=== PATIENT | female | born 1945 | race Caucasian/White ===

== ENCOUNTER 2016-10-11 15:54 | Emergency (ER) | payer MEDICARE, OTHER ==
[2016-10-11] MEDS ORDERED: 0.9 % SODIUM CHLORIDE 1,000 ML BAG IV ONE (16:31)
[2016-10-11] MEDS ORDERED: PROMETHAZINE HCL 25 MG/ML VIAL IVP ONE (16:33)
[2016-10-11] MEDS ORDERED: HYDROMORPHONE HCL 1 MG/ML CPJ IVP ONE (16:33)
[2016-10-11 16:49] LABS: BASO % 0.6 % (0-6); EOS % 5.3 % (0-6); GRAN % 60.9 % (47-80); HEMATOCRIT 34.4 % (35.0-47.0); HEMOGLOBIN 10.2 gm/dl (11.6-16.0); LYMPH % 26.8 % (16-45); MEAN CELL VOLUME 82.5 fl (81-97); MEAN CORPUSCULAR HGB CONC 29.7 g/dl (32-36); MEAN PLATELET VOLUME 12.4 fl (7.4-10.4); MONO % 6.4 % (0-9); PLATELET COUNT 218 K/uL (130-400); RED BLOOD COUNT 4.17 M/uL (3.80-5.40); RED CELL DISTRIBUTION WIDTH 14.4 % (11.5-14.5); WHITE BLOOD COUNT W/O DIFF 5.1 K/uL (4.2-12.2)
[2016-10-11 16:51] LABS: MEAN CORPUSCULAR HEMOGLOBIN 24.4 pg (27-33)
[2016-10-11 17:01] LABS: ALB/GLOB RATIO 1.5 (1.1-1.8); ALBUMIN 4.3 gm/dL (3.5-5.0); ALKALINE PHOSPHATASE 49 U/L (38-126); ALT/SGPT 37 U/L (9-52); AMYLASE 80 U/L (30-110); ANION GAP 14.1 (7-16); AST/SGOT 24 U/L (14-36); BILIRUBIN,TOTAL 0.35 mg/dL (0.2-1.3); BLOOD UREA NITROGEN 12 mg/dL (7-17); CARBON DIOXIDE 24.9 mmol/L (22-30); CREATININE 0.9 mg/dL (0.52-1.04); EST GLOMERULAR FILTRATION RATE > 60 ml/min; GLUCOSE,RANDOM 157 mg/dL (70-110); LIPASE 152 U/L (23-300); TOTAL PROTEIN 7.2 gm/dL (6.3-8.2)
--- NOTE | 2016-10-11 17:15 | Emergency Department Record ---
History of Present Illness - General Chief Complaint: Back Pain/Injury Stated Complaint: BACK PAIN (KIDNEY STONES POSS) Time Seen by Provider: 10/11/16 16:10 Source: Patient Mode of Arrival: Ambulatory Limitations: No limitations - History of Present Illness Initial Comments: pt has been having severe back pain for 3 wks.she went to her family dr and he took an xray. he told her that she has kidney stones. the pain has contd to get worse. MD Complaint: Back pain Onset/Timin -: Month(s) Similar Symptoms Previously: No Place: Home Radiation: Abdomen, Flank Severity scale (1-10): 7 Quality: Dull, Other Consistency: Constant Improves With: None Worsens With: None Context: Unknown Associated Symptoms: Denies other symptoms - Related Data Home Medications Medication Instructions Recorded Confirmed Last Taken Omeprazole [Omeprazole] 40 mg PO DAILY 08/19/14 10/11/16 Unknown Budesonide/Formoterol Fumarate 10.2 gm IH DAILY 10/11/16 10/11/16 Unknown [Symbicort 160-4.5 Mcg Inhaler] Ciprofloxacin HCl [Cipro] 500 mg PO DAILY 10/11/16 10/11/16 Unknown Previous Rx's Medication Instructions Recorded Aclidinium [place] [Tudorza 400 mcg IH BID #1 [email or web address] 08/22/14 Pressair] Cyclobenzaprine HCl [Flexeril] 5 mg PO QHS #14 tab 10/11/16 Hydrocodone/Acetaminophen [[place] 0.5 - 1 tab PO TID PRN #10 tab 10/11/16 5mg/325mg] Ibuprofen [Motrin 400Mg] 400 mg PO Q6H PRN #20 tablet 10/11/16 Allergies Allergy/AdvReac Type Severity Reaction Status Date / Time hydrocodone [HYDROCODONE] Allergy Unknown MIGRAINES Verified 08/20/14 08:56 iodine [IODINE] Allergy Unknown HIVES Verified 08/20/14 08:56 Travel Screening - Travel/Exposure Within Last 30 Days Have you traveled within the last 30 days?: No Review of Systems Reviewed: No additional complaints except as noted below Constitutional: Reports: As per HPI. Denies: Chills, Fever, Malaise, Night sweats, Weakness, Weight change Eyes: Reports: As per HPI. Denies: Eye discharge, Eye pain, Photophobia, Vision change ENT: Reports: As per HPI. Denies: Congestion, Dental pain, Ear pain, Epistaxis , Hearing loss, Throat pain Respiratory: Reports: As per HPI. Denies: Cough, Dyspnea, Hemoptysis, Stridor, Wheezes Cardiovascular: Reports: As per HPI. Denies: Arrhythmia, Chest pain, Dyspnea on exertion, Edema, Murmurs, Orthopnea, Palpitations, Paroxysmal nocturnal dyspnea, Rheumatic Fever, Syncope Endocrine: Reports: As per HPI. Denies: Fatigue, Heat or cold intolerance, Polydipsia, Polyuria Gastrointestinal: Reports: As per HPI. Denies: Abdominal pain, Constipation, Diarrhea, Hematemesis, Hematochezia, Melena, Nausea, Vomiting Genitourinary: Reports: As per HPI. Denies: Abnormal menses, Discharge, Dyspareunia, Dysuria, Frequency, Hematuria, Incontinence, Retention, Urgency Musculoskeletal: Reports: As per HPI. Denies: Arthralgia, Back pain, Gout, Joint swelling, Myalgia, Neck pain Skin: Reports: As per HPI. Denies: Bruising, Change in color, Change in hair/ nails, Lesions, Pruritus, Rash Neurological: Reports: As per HPI. Denies: Abnormal gait, Confusion, Headache, Numbness, Paresthesias, Seizure, Tingling, Tremors, Vertigo, Weakness Psychiatric: Reports: As per HPI. Denies: Anxiety, Auditory hallucinations, Depression, Homicidal thoughts, Suicidal thoughts, Visual hallucinations Hematological/Lymphatic: Reports: As per HPI. Denies: Anemia, Blood Clots, Easy bleeding, Easy bruising, Swollen glands Past Medical History - SOCIAL HISTORY Smoking Status: Heavy tobacco smoker (>10/day) - RESPIRATORY Hx Respiratory Disorders: Yes Hx Asthma: Yes Hx COPD: Yes Hx Pneumonia: Yes - CARDIOVASCULAR Hx Cardio Disorders: No - NEURO Hx Neuro Disorders: Yes Hx Headaches: Yes - GI Hx GI Disorders: Yes Hx GI Bleed: Yes - Hx Genitourinary Disorders: No - ENDOCRINE Hx Endocrine Disorders: No - MUSCULOSKELETAL Hx Musculoskeletal Disorders: No - PSYCH Hx Psych Problems: No - HEMATOLOGY/ONCOLOGY Hx Hematology/Oncology Disorders: Yes Hx Cancer: Yes (Colon about 9 years ag0) Hx Chemotherapy: No Hx Radiation Therapy: No Family Medical History Any Significant Family History?: Yes Hx Cancer: Brother/Sister *Diabetes Comment: Aunts/uncles Hx Resp Disorders: Mother *Resp Comment: emphysema Physical Exam - General General Appearance: Alert, Oriented x3, Cooperative, Mild distress - Head Head exam: Normal inspection - Eye Eye exam: Normal appearance, PERRL, EOMI Pupils: Normal accommodation - ENT ENT exam: Normal exam, Mucous membranes moist, Normal external ear exam, Normal orophraynx Ear exam: Normal external inspection. negative: External canal tenderness Nasal Exam: Normal inspection. negative: Discharge, Sinus tenderness Mouth exam: Normal external inspection, Tongue normal Teeth exam: Normal inspection. negative: Dental caries Throat exam: Normal inspection. negative: Tonsillar erythema, Tonsillar exudate - Neck Neck exam: Normal inspection, Full ROM. negative: Tenderness - Respiratory Respiratory exam: Normal lung sounds bilaterally. negative: Respiratory distress - Cardiovascular Cardiovascular Exam: Normal rhythm, Normal heart sounds, Tachycardia - GI/Abdominal GI/Abdominal exam: Soft, Normal bowel sounds, Tenderness - Rectal Rectal exam: Deferred - exam: Deferred - Extremities Extremities exam: Normal inspection, Full ROM, Normal capillary refill. negative: Tenderness - Back Back exam: Reports: CVA tenderness (R), CVA tenderness (L), Full ROM. Denies: Muscle spasm, Rash noted, Tenderness - Neurological Neurological exam: Alert, CN II-XII intact, Normal gait, Oriented X3 - Psychiatric Psychiatric exam: Normal affect, Normal mood - Skin Skin exam: Dry, Intact, Normal color, Warm Course Vital Signs 10/11/16 16:07 Temperature 98.1 F Pulse Rate 113 H Respiratory 22 Rate Blood Pressure 153/81 Pulse Ox 98 Medical Decision Making - Management Options [facility] Management: Additional Work-up Planned (e.g. ADM/Transfer/OP Study) - Data Complexity MDM Data: Labs Ordered and/or Reviewed, X-Ray Ordered and/or Reviewed - Lab Data Result diagrams: 10/11/16 16:30 10/11/16 16:30 Lab Results 10/11/16 10/11/16 Range/Units 16:30 16:30 WBC 5.1 (4.2-12.2) K/uL RBC 4.17 (3.80-5.40) M/uL Hgb 10.2 L (11.6-16.0) gm/dl Hct 34.4 L (35.0-47.0) % MCV 82.5 (81-97) fl MCH 24.4 L (27-33) pg MCHC 29.7 L (32-36) g/dl RDW 14.4 (11.5-14.5) % Plt Count 218 (130-400) K/uL MPV 12.4 H (7.4-10.4) fl Gran % 60.9 (47-80) % Lymphocytes % 26.8 (16-45) % Monocytes % 6.4 (0-9) % Eosinophils % 5.3 (0-6) % Basophils % 0.6 (0-6) % Sodium 143 (136-145) mmol/L Potassium 3.7 (3.5-5.1) mmol/L Chloride 104 (98-107) mmol/L Carbon Dioxide 24.9 (22-30) mmol/L Anion Gap 14.1 (7-16) BUN 12 (7-17) mg/dL Creatinine 0.9 (0.52-1.04) mg/dL Estimated GFR > 60 ml/min Random Glucose 157 H (70-110) mg/dL Calcium 8.6 (8.5-10.1) mg/dL Total Bilirubin 0.35 (0.2-1.3) mg/dL AST 24 (14-36) U/L ALT 37 (9-52) U/L Alkaline Phosphatase 49 (38-126) U/L Total Protein 7.2 (6.3-8.2) gm/dL Albumin 4.3 (3.5-5.0) gm/dL Globulin 2.9 (1.4-4.8) gm/dL Albumin/Globulin Ratio 1.5 (1.1-1.8) Amylase 80 (30-110) U/L Lipase 152 (23-300) U/L Disposition Disposition: Discharge Clinical Impression: Radiculopathy Qualifiers: Spinal region: thoracolumbar Qualified Code(s): M54.15 - Radiculopathy, thoracolumbar region Back pain Qualifiers: Back pain location: back pain in other location Chronicity: acute Qualified Code(s): M54.9 - Dorsalgia, unspecified Disposition: Home, Self-Care Condition: (1) Good Instructions: Lumbar Radiculopathy (ED), Back Pain (ED), Flank Pain (ED) Additional Instructions: follow up with family doctor. return sooner if worse. rest. no lifting more then 5 lbs in 5 days. Prescriptions: Cyclobenzaprine HCl [Flexeril] 5 mg PO QHS #14 tab Ibuprofen [Motrin 400Mg] 400 mg PO Q6H PRN #20 tablet PRN Reason: Pain - Mild (1-4) Hydrocodone/Acetaminophen [[place] 5mg/325mg] 0.5 - 1 tab PO TID PRN #10 tab PRN Reason: Pain - General Forms: Patient Portal Access
[2016-10-11 18:01] LABS: URINE APPEARANCE CLEAR; URINE BILIRUBIN NEGATIVE (NEGATIVE); URINE BLOOD NEGATIVE (NEGATIVE); URINE COLOR YELLOW; URINE GLUCOSE (UA) NEGATIVE (NEGATIVE); URINE KETONE NEGATIVE (NEGATIVE); URINE LEUKOCYTE ESTERASE NEGATIVE (NEGATIVE); URINE NITRITE NEGATIVE (NEGATIVE); URINE PROTEIN NEGATIVE (NEGATIVE); URINE UROBILINOGEN 0.2 E.U./dL (0.20 - 1.00)
== END 2016-10-11 18:52 | disposition home or self-care (01) ==
LOC: ER 15:54
DX: M54.15 Radiculopathy, thoracolumbar region (principal); R10.84 Generalized abdominal pain; Z87.442 Personal history of urinary calculi
CPT/HCPCS: 99284 ×2; 96374; 96375; 82150; 83690; 85025; 80053; 81003; 74176; J1170; J2550; J7030

== ENCOUNTER 2016-12-31 08:52 | Day surgery (SDC) | payer MEDICARE, OTHER ==
[~2016-12-31 08:52] MED LIST: ACETAMINOPHEN 1000MG/100 ML PREMIX IV ONE; FAMOTIDINE 20MG TABLET PO ONE; MECLIZINE 25 MG TABLET PO ONE; METOCLOPRAMIDE 10 MG TABLET PO ONE
[2016-12-31 09:14] LABS: BASO % 0.6 % (0-6); EOS % 6.1 % (0-6); GRAN % 51.6 % (47-80); HEMATOCRIT 42.3 % (35.0-47.0); HEMOGLOBIN 13.3 gm/dl (11.6-16.0); LYMPH % 32.4 % (16-45); MEAN CELL VOLUME 88.5 fl (81-97); MEAN CORPUSCULAR HEMOGLOBIN 27.8 pg (27-33); MEAN CORPUSCULAR HGB CONC 31.4 g/dl (32-36); MEAN PLATELET VOLUME 12.4 fl (7.4-10.4); MONO % 9.3 % (0-9); PLATELET COUNT 227 K/uL (130-400); RED BLOOD COUNT 4.78 M/uL (3.80-5.40); RED CELL DISTRIBUTION WIDTH 16.7 % (11.5-14.5); WHITE BLOOD COUNT W/O DIFF 7.2 K/uL (4.2-12.2)
[2016-12-31] MEDS ORDERED: ROCURONIUM BROMIDE 50MG/5ML VIAL IV ONE (14:00)
[2016-12-31] MEDS ORDERED: PROPOFOL 10 MG/ML VIAL IV ONE (14:00)
[2016-12-31] MEDS ORDERED: MIDAZOLAM HCL 2MG/2ML VIAL IV ONE (14:00)
[2016-12-31] MEDS ORDERED: MORPHINE SULFATE 5 MG/ML PFS IVP ONE (14:00)
[2016-12-31] MEDS ORDERED: ONDANSETRON HCL IV 4 MG/2 ML VIAL IVP ONE (14:00)
[2016-12-31] MEDS ORDERED: NEOSTIGMINE 1 MG/1 ML,10ML VIAL IV ONE (14:00)
[2016-12-31] MEDS ORDERED: SUCCINYLCHOLINE 20 MG/ML 10ML IVP ONE (14:00)
[2016-12-31] MEDS ORDERED: BUPIVACAINE 0.25% W/EPI MPF 30ML VIAL IVP ONE (14:00)
[2016-12-31] MEDS ORDERED: FENTANYL PF 100MCG/2ML VIAL IV ONE (14:00)
[2016-12-31] MEDS ORDERED: KETOROLAC 30 MG/ML VIAL IVP ONE (14:00)
[2016-12-31] MEDS ORDERED: LIDOCAINE 2% MDV (20MG/ML) 20ML VIAL IV ONE (14:00)
[2016-12-31] MEDS ORDERED: GLYCOPYRROLATE 0.2 MG/ML ML IV ONE (14:00)
[2016-12-31] MEDS ORDERED: SEVOFLURANE 250 ML INH ONE (14:00)
--- NOTE | 2017-01-01 12:13 | Operative Note ---
DATE OF SURGERY: 12/31/2016 Surgeon: Aditya Hidalgo DO Referring: MADISON Pinto PREOPERATIVE DIAGNOSIS: Cholelithiasis with chronic cholecystitis. POSTOPERATIVE DIAGNOSIS: Cholelithiasis with chronic cholecystitis. OPERATION: LAPAROSCOPIC CHOLECYSTECTOMY. Indication: The patient is a 71-year-old female who is having ongoing right subcostal postprandial pain. She had definite fatty food intolerance. Imaging studies did reveal cholelithiasis without evidence of acute cholecystitis. We did discuss cholecystectomy versus medical management. She desires surgical intervention. Risks include but not limited to bleeding, infection, duct injury, possible conversion to open, postoperative bile leak, and non-resolution of her symptoms, and she understood this fully. PROCEDURE: Therefore, consent was signed and questions answered. She was taken to the Operating Room and placed in the supine position. General anesthesia was administered per Department of Anesthesia. Patient's abdomen was prepped and draped in the usual fashion. We did elect to go in the supraumbilical region for our Oliverio port secondary to her infraumbilical laparotomy. Therefore, the supraumbilical region was anesthetized with a total of 2 mL of 0.25% Sensorcaine with epinephrine. A 2 cm incision made. This was carried down to the anterior rectus fascia. This was incised. Misha clamps were placed on the fascial edges and brought up into the wound. Stay sutures of 0 Vicryl placed. The posterior rectus sheath was identified, incised and the peritoneal cavity was entered bluntly. At this time, a 10 mm blunt Oliverio port was placed and adequate pneumoperitoneum established. Under direct visualization, an additional 5 mm epigastric and two 5 mm right subcostal ports were placed. The patient had a fairly sizeable liver; therefore, I did place the lateral port a little lower than normal. Gallbladder was retracted in cephalad and lateral direction, opening up the angle of Calot. The hepatocystic triangle was thoroughly dissected out. There was no aberrant anatomy, no posterior ductal structures. The distal half of the gallbladder was released from the liver plate, extending on rectal cystic space. The cystic duct and cystic artery were clearly identified. These were each circumferentially dissected out in a 360 degree fashion. Each one was doubly clipped and cut in standard fashion. The gallbladder was taken off the liver bed with Angel harmonic. This was then extracted through the supraumbilical port. The right upper quadrant was rechecked and noted to be hemostatic. No bleeding, no bile leak, no bowel injury noted. Patient was leveled out and pneumoperitoneum was released. All ports were removed. The fascia was closed with 0 Vicryl in a [id number] fashion. The skin in all ports was closed with 4-0 Vicryl. She was taken to recovery room in satisfactory condition. FINAL PATHOLOGY: Pending. CC: MADISON Pinto
== END 2016-12-31 13:46 | disposition home or self-care (01) ==
LOC: SUR 08:52
PROVIDERS: ATTEND Surgery
DX: K80.10 Calculus of gallbladder with chronic cholecystitis without obstruction (principal); J44.9 Chronic obstructive pulmonary disease, unspecified; F17.200 Nicotine dependence, unspecified, uncomplicated
CPT/HCPCS: 47562; 00790; 85025; 88304; J1885; J2405; J3010; J2270; J0330; J2710

== ENCOUNTER 2017-08-08 08:52 | Day surgery (SDC) | payer MEDICARE, OTHER ==
[2017-08-08] MEDS ORDERED: MIDAZOLAM HCL 2MG/2ML VIAL IV ONE (08:53)
[2017-08-08] MEDS ORDERED: LIDOCAINE 2% MDV (20MG/ML) 20ML VIAL IV ONE (08:53)
[2017-08-08] MEDS ORDERED: PROPOFOL 10 MG/ML VIAL IV ONE (08:53)
--- NOTE | 2017-08-08 12:30 | Operative Note ---
DATE OF SURGERY: 08/08/2017 OPERATION: COLONOSCOPY. PREOPERATIVE DIAGNOSIS: Abdominal pain, change in bowel habits. POSTOPERATIVE DIAGNOSES: 1. Severely angulated sigmoid colon with associated diverticular disease. 2. Possible abdominopelvic adhesions. 3. Otherwise normal exam. PROCEDURE: After informed consent was obtained from the patient, she was placed in the left lateral decubitus position in the endoscopy suite, sedated and monitored by the department of anesthesia. Digital rectal exam was unremarkable. A well-lubricated [id number] colonoscope was inserted into the rectum and advanced to the sigmoid colon. There was marked angulation. Despite attempts at maneuvering the pediatric colonoscope, I was unable to advance through this angulated segment. A [id number] gastroscope was then utilized after the [id number] had been removed. With the use of the adult gastroscope, I was able to manipulate with difficulty through the angulated sigmoid colon to the level of the ascending colon. Transabdominal pressure and placing the patient in a supine position was necessary to intubate the cecal cap. The cecum, appendiceal orifice, ileocecal valve, ascending colon, transverse colon, and descending colon were free of inflammatory changes, mass lesions, or polyps. There were sllm-mm-[id number] diverticular changes in the sigmoid colon as well as marked angulation possibly reflecting previous abdominopelvic adhesions. The rectum was unremarkable in forward and in J-turn views. The endoscope was straightened, the rectal ampulla deflated, and the endoscope was removed. RECOMMENDATIONS: I suggest the patient resume her MiraLax. She should continue her dicyclomine. It was noted she did have extensive magnetic resonance angiographic investigation of her abdominal circulation. There did not appear to be any significant changes to her superior mesenteric artery as well as her celiac trunk. Given these findings, it does not seem that her abdominal symptoms would be related to intestinal ischemia. There may be small vessel disease but no large vessel disease was noted. I would suggest she continue her current medical program and avoid use of any tobacco. As always, thank you for allowing me to participate in the healthcare of your patients. CC: MADISON Morales
== END 2017-08-08 10:40 | disposition home or self-care (01) ==
LOC: HOP 08:52
PROVIDERS: ATTEND Internal Medicine Gastroenterology
DX: R10.9 Unspecified abdominal pain (principal); R19.4 Change in bowel habit; K56.609 Unspecified intestinal obstruction, unspecified as to partial versus complete obstruction; J44.9 Chronic obstructive pulmonary disease, unspecified; K57.30 Diverticulosis of large intestine without perforation or abscess without bleeding
CPT/HCPCS: 00810; G0121

== ENCOUNTER 2017-12-20 09:41 | Day surgery (SDC) | payer MEDICARE, OTHER ==
[2017-12-20] MEDS ORDERED: PROPOFOL 10 MG/ML VIAL IV ONE (09:42)
[2017-12-20] MEDS ORDERED: LIDOCAINE 2% MDV (20MG/ML) 20ML VIAL IV ONE (09:42)
[2017-12-20] MEDS ORDERED: FENTANYL PF 100MCG/2ML VIAL IV ONE (09:42)
--- NOTE | 2017-12-23 09:50 | Operative Note ---
DATE OF SURGERY: 12/20/2017 SURGEON: Katie Amador MD OPERATION: ESOPHAGOGASTRODUODENOSCOPY. INDICATIONS: This is a 72-year-old female with abdominal pain who presented for esophagogastroduodenoscopy. POSTOPERATIVE DIAGNOSES: 1. Normal esophagus. 2. Mild gastritis. 3. Gastric bezoar. 4. Normal duodenum. ANESTHESIA: Sedation is per Anesthesia. Pulse oximetry was monitored throughout the procedure to maintain O2 saturation of 90% or greater. Supplemental oxygen was administered via nasal cannula. Cardiac and vital signs were monitored throughout the duration of the procedure, and they were stable. The procedure of esophagogastroduodenoscopy and risks and benefits of the procedure, including the risk of bleeding and perforation, among others, were explained to the patient who voiced understanding and agreed to have the procedure done. Physical examination was performed, and the patient was found stable for sedation. PROCEDURE: The patient was placed in the left lateral position. Sedation was initiated. A plastic bite block was inserted into the oral cavity. The Olympus [id number] gastroscope was introduced into the oral cavity and advanced to the proximal esophagus without difficulty. The esophageal mucosa was carefully examined upon introduction of the gastroscope. The proximal and mid and distal esophageal mucosa appeared normal. The gastroscope was then advanced into the stomach, and surveillance of the stomach revealed mild erythema along the gastric body and antrum with large amount of gastric bezoar comprising of mostly food. The gastroscope was then advanced to the descending duodenum without difficulty. The duodenal bulb and descending duodenum appeared normal. The gastroscope was then withdrawn into the stomach and retroflexion was performed. There were no other lesions noted. The gastroscope was then straightened and withdrawn while carefully examining the gastric and esophageal mucosa. No other lesions noted. Multiple duodenal and gastric esophageal biopsies were obtained. The patient remained with stable vital signs and was transferred to the recovery room. RECOMMENDATIONS: 1. We will follow up on the biopsy. 2. We will obtain a gastric emptying study. 3. I will see her back in the office as needed. Thank you for allowing me to participate in the care of your patient. CC: Demetris EARL
== END 2017-12-20 11:30 | disposition home or self-care (01) ==
LOC: HOP 09:41
PROVIDERS: ATTEND Internal Medicine Gastroenterology
DX: R10.9 Unspecified abdominal pain (principal); J44.9 Chronic obstructive pulmonary disease, unspecified; I25.10 Atherosclerotic heart disease of native coronary artery without angina pectoris; F17.210 Nicotine dependence, cigarettes, uncomplicated
CPT/HCPCS: 43235; 00731; 88305; J3010

== ENCOUNTER 2019-04-16 15:18 | Emergency (ER) | payer MEDICARE, OTHER ==
[2019-04-16] MEDS ORDERED: BREO (FLUTICASONE/VILANTEROL) 100MCG/25MCG INHALER INH ONE (15:19)
[2019-04-16] MEDS ORDERED: DIPHENHYDRAMINE HCL 50 MG/ML VIAL IVP ONE (15:21)
[2019-04-16] MEDS: METHYLPREDNISOLONE PF 125MG/VIAL IVP ONE (15:41)
--- NOTE | 2019-04-16 15:55 | Emergency Department Record ---
History of Present Illness - General Chief Complaint: Shortness of breath Stated Complaint: REACTION Time Seen by Provider: 04/16/19 15:20 Source: Patient Mode of Arrival: Ambulatory Limitations: No limitations - History of Present Illness Initial Comments: pt was having a pft with albuterol when she suddenly felt like her throat was closing up. she was brought to the emergency dept Complaint: Shortness of breath Onset/Timin -: Minutes(s) Severity: Moderate Consistency: Other (getting better) Known History Of: COPD Associated Symptoms: Denies other symptoms Treatments Prior to Arrival: Bronchodilator, Oxygen - Related Data Home Oxygen Therapy: No Home Medications Medication Instructions Recorded Confirmed Last Taken Albuterol Sulfate 0.083% [Neb] 3 ml NEB .EVERY 4-6 HOURS PRN 04/16/19 04/16/19 Unknown [Albuterol Sulfate] Fluticasone/Vilanterol [Breo 1 each IH DAILY 04/16/19 04/16/19 Unknown Ellipta 100-25 Mcg INH] Allergies Allergy/AdvReac Type Severity Reaction Status Date / Time iodine [IODINE] Allergy Severe HIVES Verified 04/16/19 15:29 hydrocodone [HYDROCODONE] Allergy Intermediate MIGRAINES Verified 04/16/19 15:29 lactose Allergy Intermediate ABDOMINAL Verified 04/16/19 15:29 PAIN Travel Screening - Travel/Exposure Within Last 30 Days Have you traveled within the last 30 days?: No Review of Systems Reviewed: No additional complaints except as noted below Constitutional: Reports: As per HPI. Denies: Chills, Fever, Malaise, Night sweats, Weakness, Weight change Eyes: Reports: As per HPI. Denies: Eye discharge, Eye pain, Photophobia, Vision change ENT: Reports: As per HPI. Denies: Congestion, Dental pain, Ear pain, Epistaxis, Hearing loss, Throat pain Respiratory: Reports: As per HPI. Denies: Cough, Dyspnea, Hemoptysis, Stridor, Wheezes Cardiovascular: Reports: As per HPI. Denies: Arrhythmia, Chest pain, Dyspnea on exertion, Edema, Murmurs, Orthopnea, Palpitations, Paroxysmal nocturnal dyspnea, Rheumatic Fever, Syncope Endocrine: Reports: As per HPI. Denies: Fatigue, Heat or cold intolerance, Polydipsia, Polyuria Gastrointestinal: Reports: As per HPI. Denies: Abdominal pain, Constipation, Diarrhea, Hematemesis, Hematochezia, Melena, Nausea, Vomiting Genitourinary: Reports: As per HPI. Denies: Abnormal menses, Discharge, Dyspareunia, Dysuria, Frequency, Hematuria, Incontinence, Retention, Urgency Musculoskeletal: Reports: As per HPI. Denies: Arthralgia, Back pain, Gout, Joint swelling, Myalgia, Neck pain Skin: Reports: As per HPI. Denies: Bruising, Change in color, Change in hair/nails, Lesions, Pruritus, Rash Neurological: Reports: As per HPI. Denies: Abnormal gait, Confusion, Headache, Numbness, Paresthesias, Seizure, Tingling, Tremors, Vertigo, Weakness Psychiatric: Reports: As per HPI. Denies: Anxiety, Auditory hallucinations, Depression, Homicidal thoughts, Suicidal thoughts, Visual hallucinations Hematological/Lymphatic: Reports: As per HPI. Denies: Anemia, Blood Clots, Easy bleeding, Easy bruising, Swollen glands Past Medical History - SOCIAL HISTORY Smoking Status: Current every day smoker Alcohol Use: None Drug Use: None - RESPIRATORY Hx Respiratory Disorders: Yes Hx Asthma: Yes Hx COPD: Yes Hx Pneumonia: Yes Comment:: smoker - CARDIOVASCULAR Hx Cardio Disorders: Yes Hx Abnormal EKG: Yes Hx Cardiac Cath: Yes (2005) Hx Chest Pain: No Hx Deep Vein Thrombosis: Yes ("clot in back age 22") Hx Edema: Yes (once in a while) Hx Hypotension: Yes Hx Irregular Heartbeat: Yes ("skipped a beat") Hx Palpitations: No Hx Coronary Stent: Yes (2005) - NEURO Hx Neuro Disorders: Yes Hx Headaches: No Hx of Migraines: No Hx Weakness: Yes (bilateral legs) - GI Hx GI Disorders: Yes Hx Abdominal Pain: Yes Hx Reflux: Yes Hx Nausea/Vomiting: No Hx Wt Loss/Wt Gain: No (.) Hx of Polyps: Yes - Hx Genitourinary Disorders: No - ENDOCRINE Hx Endocrine Disorders: No Hx Diabetes: No Hx Thyroid Disease: No - MUSCULOSKELETAL Hx Musculoskeletal Disorders: Yes Hx Arthritis: Yes Hx Osteoporosis: Yes - PSYCH Hx Psych Problems: Yes Hx Depression: Yes ("tired of being sick") - HEMATOLOGY/ONCOLOGY Hx Hematology/Oncology Disorders: Yes Hx Anemia: Yes Hx Cancer: Yes (Colon about 9 years ag0) Hx Chemotherapy: No Hx Radiation Therapy: No Hx Blood Transfusions: Yes Hx Blood Transfusion Reaction: No Family Medical History Any Significant Family History?: Yes Hx Cancer: Brother/Sister *Cancer Comment: sister-unknown "side of stomach" *Diabetes Comment: Aunts/uncles *Heart Comment: aunt Hx Resp Disorders: Mother *Resp Comment: emphysema Physical Exam - General General Appearance: Alert, Oriented x3, Cooperative, Mild distress - Head Head exam: Normal inspection - Eye Eye exam: Normal appearance, PERRL, EOMI Pupils: Normal accommodation - ENT ENT exam: Normal exam, Mucous membranes moist, Normal external ear exam, Normal orophraynx Ear exam: Normal external inspection. negative: External canal tenderness Nasal Exam: Normal inspection. negative: Discharge, Sinus tenderness Mouth exam: Normal external inspection, Tongue normal Teeth exam: Normal inspection. negative: Dental caries Throat exam: Normal inspection. negative: Tonsillar erythema, Tonsillar exudate - Neck Neck exam: Normal inspection, Full ROM. negative: Tenderness - Respiratory Respiratory exam: Normal lung sounds bilaterally. negative: Respiratory distress - Cardiovascular Cardiovascular Exam: Regular rate, Normal rhythm, Normal heart sounds - GI/Abdominal GI/Abdominal exam: Soft, Normal bowel sounds. negative: Tenderness - Rectal Rectal exam: Deferred - exam: Deferred - Extremities Extremities exam: Normal inspection, Full ROM, Normal capillary refill. negative: Tenderness - Back Back exam: Reports: Normal inspection, Full ROM. Denies: Muscle spasm, Rash noted, Tenderness - Neurological Neurological exam: Alert, CN II-XII intact, Normal gait, Oriented X3 - Psychiatric Psychiatric exam: Normal affect, Normal mood - Skin Skin exam: Dry, Intact, Normal color, Warm Course Vital Signs 04/16/19 04/16/19 15:33 15:43 Temperature 98.5 F Pulse Rate 89 Pulse Rate [ 74 Buggyman ] Respiratory 24 20 Rate Blood Pressure 135/96 Blood Pressure 130/62 [Left Arm] Pulse Ox 97 98 - Reevaluation(s) Reevaluation #1: 04/16/19 16:25 pt is doing better Disposition Disposition: Discharge Clinical Impression: Bronchospasm Allergic reaction Qualifiers: Encounter type: initial encounter Qualified Code(s): T78.40XA - Allergy, unspecified, initial encounter Disposition: Home, Self-Care Condition: (1) Good Instructions: General Allergic Reaction (ED), Bronchospasm (ED) Additional Instructions: follow up with family doctor. return sooner if worse. take benadryl if needed Forms: Patient Portal Access Quality - Quality Measures Quality Measures: N/A - Blood Pressure Screening Does Patient Have Any of the Following: No Blood Pressure Classification: Hypertensive Reading Systolic Measurement: 135 Diastolic Measurement: 96 Screening for High Blood Pressure: < First Hypertensive BP, F/U Documented > [G8950] First Hypertensive Follow-up Interventions: Follow-up with rescreen GT 1 day and LT 4 weeks.
== END 2019-04-16 16:36 | disposition home or self-care (01) ==
LOC: ER 15:18
DX: T48.6X1A Poisoning by antiasthmatics, accidental (unintentional), initial encounter (principal); R06.02 Shortness of breath; J44.9 Chronic obstructive pulmonary disease, unspecified; J68.0 Bronchitis and pneumonitis due to chemicals, gases, fumes and vapors; I10 Essential (primary) hypertension; F17.210 Nicotine dependence, cigarettes, uncomplicated
CPT/HCPCS: 94060; 96374; 99284; J2930